=== PATIENT | female | born 1980 | race Caucasian/White ===

== ENCOUNTER 2023-11-21 10:32 | Emergency (ER) | payer BC ==
[~2023-11-21] VITALS: Ht 157.5 cm; Wt 65.8 kg
[2023-11-21] MEDS ORDERED: FAMOTIDINE/PF INJ 20 MG/2 ML VIAL IV ONE (11:06)
[2023-11-21] MEDS ORDERED: KETOROLAC TROMETHAMINE 15 MG/ML VIAL ONE (11:06)
[2023-11-21] MEDS ORDERED: METOCLOPRAMIDE HCL 10 MG/2 ML VIAL ONE (11:06)
[2023-11-21] MEDS ORDERED: diphenhydrAMINE HCL 50 MG/ML VIAL ONE (11:06)
[2023-11-21] MEDS: diphenhydrAMINE HCL 50 MG/ML VIAL IV ONE (11:07)
[2023-11-21] MEDS: METOCLOPRAMIDE HCL 10 MG/2 ML VIAL IV ONE (11:07)
[2023-11-21] MEDS: KETOROLAC TROMETHAMINE 15 MG/ML VIAL IV ONE (11:07)
[2023-11-21] MEDS: FAMOTIDINE/PF INJ 20 MG/2 ML VIAL IV ONE (11:07)
[2023-11-21] MEDS: IV NS 0.9% 1,000 ML BAG IV ONE (11:07)
[2023-11-21 11:16] LABS: BASOPHILS # (AUTO) 0.1 K/uL (0.0-0.2); BASOPHILS % (AUTO) 0.9 % (0.0-2.0); EOSINOPHILS # (AUTO) 0.1 K/uL (0.0-0.7); EOSINOPHILS % (AUTO) 0.7 % (0.0-6.0); HEMATOCRIT 41 % (33-45); LYMPHOCYTES # (AUTO) 1.7 K/uL (0.8-4.8); LYMPHOCYTES % (AUTO) 19.9 % (20.0-44.0); MEAN CORPUSCULAR HEMOGLOBIN 34 PG (26.0-33.0); MEAN CORPUSCULAR HGB CONC 34 g/dl (31.0-36.0); MEAN CORPUSCULAR VOLUME 98 fL (82-100); MONOCYTES # (AUTO) 0.5 K/uL (0.1-1.30); MONOCYTES % (AUTO) 5.9 % (2.0-12.0); NEUTROPHILS # (AUTO) 6.1 K/uL (1.8-8.9); NEUTROPHILS % (AUTO) 72.6 % (43.0-81.0); PLATELET COUNT (AUTO) 228 K/uL (150-450); RED BLOOD CELL COUNT(AUTO) 4.19 MIL/uL (4.0-5.2); RED CELL DISTRIBUTION WIDTH 13.8 % (11.5-15.0); WHITE BLOOD COUNT (AUTO) 8.4 K/uL (4.3-11.0)
[2023-11-21 11:24] LABS: CALCIUM, SERUM 8.6 mg/dL (8.5-10.1); CREATININE 0.6 mg/dL (0.6-1.3)
[2023-11-21 11:35] LABS: ALBUMIN 3.7 g/dL (3.4-5.0); BILIRUBIN,DIRECT 0.1 mg/dL (0.0-0.2); BILIRUBIN,TOTAL 0.4 mg/dL (0.2-1.0); TOTAL PROTEIN, SERUM 7.2 g/dL (6.4-8.2)
[2023-11-21] MEDS ORDERED: METO-295 PO (12:07)
[2023-11-21 12:57] VITALS: BP 131/70; TEMP 208.6; O2SAT 100
== END 2023-11-21 12:57 | disposition home or self-care (01) ==
LOC: ER 10:50
DX: G43.909 Migraine, unspecified, not intractable, without status migrainosus (principal); R11.10 Vomiting, unspecified; R10.13 Epigastric pain; R10.2 Pelvic and perineal pain; Z60.2 Problems related to living alone
CPT/HCPCS: 99284; 96374; 96375; 96361; 85025; 80048; 83690; 80076; 36415; 84702; J1200; J3490; J2765; J7030; J1885

== ENCOUNTER 2025-03-22 07:42 | Emergency (ER) | payer BC ==
[~2025-03-22] VITALS: Ht 157.5 cm; Wt 69.4 kg
[~2025-03-22 07:42] MED LIST: METO-295 PO
[2025-03-22] MEDS: ONDANSETRON HCL/PF 4 MG/2 ML VIAL IVP ONE (08:00)
[2025-03-22] MEDS: IV NS 0.9% 1,000 ML BAG IV ONE (08:00)
[2025-03-22] MEDS ORDERED: MORPHINE SULFATE INJ 4 MG/ML DISP.SYRIN ONE (08:12)
[2025-03-22] MEDS ORDERED: ONDANSETRON HCL/PF 4 MG/2 ML VIAL ONE ×2 (08:12→13:04)
[2025-03-22] MEDS: MORPHINE SULFATE INJ 2 MG/ML DISP.SYRIN IV ONE (08:25)
[2025-03-22 08:29] LABS: PLATELET COUNT (AUTO) 222 K/uL (150-450); RED BLOOD CELL COUNT(AUTO) 4.26 MIL/uL (4.0-5.2); RED CELL DISTRIBUTION WIDTH 13.6 % (11.5-15.0); WHITE BLOOD COUNT (AUTO) 7.6 K/uL (4.3-11.0)
[2025-03-22 08:44] LABS: CALCIUM, SERUM 8.4 mg/dL (8.5-10.1); CREATININE 0.7 mg/dL (0.6-1.3); SODIUM SERUM 139.0 mmol/L (136-145); UREA NITROGEN, BLOOD 21.0 mg/dL (7-18)
[2025-03-22 08:50] LABS: ASPARTATE AMINOTRANSFERASE 32.0 U/L (15-37); TOTAL PROTEIN, SERUM 7.3 g/dL (6.4-8.2)
[2025-03-22 09:54] LABS: APPEARANCE,URINE CLEAR (CLEAR); BLOOD, URINE 1+ Ery/uL (NEGATIVE); LEUKOCYTE ESTERASE ,URINE NEGATIVE (NEGATIVE); NITRITE, URINE NEGATIVE (NEGATIVE); UGLUCOSE NEGATIVE (NEGATIVE)
[2025-03-22 10:00] LABS: ADD URINE CULTURE NO; PREGNANCY TEST URINE QUAL NEGATIVE (NEGATIVE); SQUAMOUS EPITHELIAL CELL,UR Few /HPF (None Seen)
[2025-03-22] MEDS: MAG HYDROX/AL HYDROX/SIMETH 30 ML UDC PO ONE (10:00)
[2025-03-22] MEDS: PANTOPRAZOLE 40 MG VIAL IV ONE (10:00)
[2025-03-22] MEDS: DICYCLOMINE HCL 10 MG CAPSULE PO ONE (10:00)
[2025-03-22] MEDS ORDERED: PANTOPRAZOLE 40 MG VIAL ONE (10:11)
[2025-03-22] MEDS ORDERED: DICYCLOMINE HCL 10 MG CAPSULE PO ONE (10:11)
[2025-03-22] MEDS ORDERED: MAG HYDROX/AL HYDROX/SIMETH 30 ML UDC ONE (10:11)
[2025-03-22] MEDS ORDERED: PANT40TA2 PO (12:41)
[2025-03-22] MEDS ORDERED: ONDA4TAB11 PO (12:41)
[2025-03-22] MEDS ORDERED: FAMO20TA80 PO (12:41)
[2025-03-22] MEDS: ONDANSETRON HCL/PF - ER 4 MG/2 ML VIAL IV ONE (13:30)
[2025-03-22 13:46] VITALS: BP 119/76; TEMP 98.4; O2SAT 99
== END 2025-03-22 13:46 | disposition home or self-care (01) ==
LOC: ER 07:46
DX: R10.13 Epigastric pain (principal); R11.2 Nausea with vomiting, unspecified; Z60.2 Problems related to living alone
CPT/HCPCS: 99285; 96374; 76705; 96375; 96361; 96376; 85025; 80048; 83690; 80076; 84703; 81001; 36415; J2270; J2405 ×3; J7030; J2470